=== PATIENT | male | born 1990 | race Caucasian/White ===

== ENCOUNTER 2024-03-29 16:48 | Emergency (ER) | payer SELFPAY ==
[~2024-03-29] VITALS: Ht 172.7 cm; Wt 74.8 kg
[2024-03-29] MEDS ORDERED: DiphenhydrAMINE HCL 50 MG/ML SDV IM ONE (17:00)
[2024-03-29] MEDS ORDERED: DEXAMETHASONE SOD. PHOSPHATE 10 MG/ML VIAL IV ONE (17:00)
[2024-03-29 17:14] VITALS: BP 125/76
[2024-03-29] MEDS ORDERED: PREDNISONE20 MG PO (17:24)
[2024-03-29 17:30] VITALS: BP 131/72
[2024-03-29 17:45] VITALS: BP 118/75
[2024-03-29 17:54] VITALS: BP 118/75
== END 2024-03-29 17:58 | disposition home or self-care (01) | DRG 607 ==
LOC: ED 16:48
DX: L23.7 Allergic contact dermatitis due to plants, except food (principal); B19.20 Unspecified viral hepatitis C without hepatic coma

== ENCOUNTER 2024-04-07 09:42 | Emergency (ER) | payer SELFPAY ==
[~2024-04-07] VITALS: Ht 172.7 cm; Wt 74.0 kg
[~2024-04-07 09:42] MED LIST: PREDNISONE20 MG PO
[2024-04-07 10:01] VITALS: BP 150/98
[2024-04-07] MEDS ORDERED: KETOROLAC TROMETHAMINE 30 MG/ML SDV IM ONE (10:05)
[2024-04-07] MEDS ORDERED: DEXAMETHASONE 2 MG/TAB TAB PO ONE (10:05)
[2024-04-07 10:17] VITALS: BP 122/83
[2024-04-07 10:31] VITALS: BP 151/88
[2024-04-07 10:46] VITALS: BP 152/85
[2024-04-07] MEDS ORDERED: ALL DAY10 MG PO (10:52)
[2024-04-07] MEDS ORDERED: NAPROXEN500 MG PO (10:52)
[2024-04-07] MEDS ORDERED: PREDNISONE20 MG PO (10:52)
[2024-04-07 11:01] VITALS: BP 138/72
== END 2024-04-07 11:10 | disposition home or self-care (01) | DRG 607 ==
LOC: ED 09:42
DX: L23.7 Allergic contact dermatitis due to plants, except food (principal); M25.532 Pain in left wrist